=== PATIENT | male | born 1985 | race Hispanic/Latino ===

== ENCOUNTER 2016-06-27 00:09 | Emergency (ER) | payer OTHER ==
[2016-06-27 01:31] VITALS: RESP 16; TEMP 98.2; O2SAT 96
[2016-06-27 02:08] LABS: BASO % 0.7 % (0.0-2.0); EOS # 0.2 K/uL (0.0-0.7); EOS % 4.1 % (0.0-4.0); HEMATOCRIT 41.1 % (35.0-51.0); LYMPH # 1.4 K/uL (1.0-4.3); LYMPH % 23.7 % (20.0-40.0); MEAN CELL VOLUME 90.4 fl (80.0-94.0); MEAN CORPUSCULAR HEMOGLOBIN 30.4 pg (27.0-31.0); MEAN CORPUSCULAR HGB CONC 33.6 g/dL (33.0-37.0); MONO # 0.7 K/uL (0.0-0.8); MONO % 11.9 % (0.0-10.0); NEUT # 3.5 K/uL (1.8-7.0); NEUT % 59.6 % (50.0-75.0); RED CELL DISTRIBUTION WIDTH 13.3 % (11.5-14.5); WHITE BLOOD COUNT 5.8 K/uL (4.8-10.8)
[2016-06-27 02:22] LABS: ALB/GLOB RATIO 1.7 (1.0-2.1); ALCOHOL SERUM 176 mg/dl (0-10); ALKALINE PHOSPHATASE 42 U/L (38-126); ALT/SGPT 28 U/L (21-72); AST/SGOT 26 U/L (17-59); BILIRUBIN,TOTAL 0.8 mg/dl (0.2-1.3); BLOOD UREA NITROGEN 8 mg/dl (9-20); CARBON DIOXIDE 20 mmol/L (22-30); CHLORIDE 107 mmol/L (98-107); GFR AFRICAN-AMERICAN > 60; GLUCOSE,RANDOM 102 mg/dL (75-110); POTASSIUM 3.7 MMOL/L (3.6-5.0); SODIUM 142 mmol/l (132-148); TOTAL PROTEIN 7.3 G/DL (6.3-8.2)
--- NOTE | 2016-06-27 04:44 | ED PDOC ---
HPI: Psych/Substance Abuse Time Seen by Provider: 06/27/16 00:15 Chief Complaint (Nursing): Alcohol Ingestion Chief Complaint (Provider): Alcohol Ingestion History Per: EMS History/Exam Limitations: intoxication Onset/Duration Of Symptoms: Hrs Current Symptoms Are (Timing): Still Present Associated Symptoms: Agitation Additional Complaint(s): Keon Romero is a 30 year old male with no past medical history who presents to the ED accompanied by ems for evaluation of alcohol intoxication. Patient is non cooperative and agitated. denies any associated symptoms. ROS is limited due to intoxication. Past Medical History Reviewed: Historical Data, Nursing Documentation, Vital Signs Vital Signs: Last Vital Signs Temp 98.2 F 06/27/16 01:27 Pulse 86 06/27/16 01:27 Resp 16 06/27/16 01:27 BP 124/68 06/27/16 01:27 Pulse Ox 96 06/27/16 01:27 - Medical History PMH: No Chronic Diseases - Surgical History Surgical History: No Surg Hx - Family History Family History: States: Unknown Family Hx - Social History Alcohol: Social - Home Medications Home Medications: Ambulatory Orders Medication Instructions Recorded Unobtainable 06/27/16 - Allergies Allergies/Adverse Reactions: Allergies Allergy/AdvReac Type Severity Reaction Status Date / Time Unobtainable Allergy Verified 06/27/16 00:18 Review of Systems ROS Statement: Except As Marked, All Systems Reviewed And Found Negative Neurological: Positive for: Change in Speech (Slurred speech) Physical Exam - Reviewed Nursing Documentation Reviewed: Yes Vital Signs Reviewed: Yes - Physical Exam Appears: Positive for: Well, Non-toxic, No Acute Distress Head Exam: Positive for: ATRAUMATIC, NORMAL INSPECTION, NORMOCEPHALIC Skin: Positive for: Normal Color, Warm, Dry Eye Exam: Positive for: Normal appearance, EOMI, PERRL ENT: Positive for: Normal ENT Inspection Neck: Positive for: Normal, Painless ROM, Supple Cardiovascular/Chest: Positive for: Regular Rate, Rhythm. Negative for: Murmur , Tachycardia Respiratory: Positive for: Normal Breath Sounds Gastrointestinal/Abdominal: Positive for: Normal Exam, Soft. Negative for: Tenderness Male Genital Exam: Positive for: normal genitalia Back: Positive for: Normal Inspection Rectal: Positive for: Deferred Extremity: Positive for: Normal ROM Lymphatic: Positive for: Deferred Neurologic/Psych: Positive for: Alert, Oriented - Laboratory Results Result Diagrams: 06/27/16 01:30 06/27/16 01:30 - ECG O2 Sat by Pulse Oximetry: 96 (RA) Pulse Ox Interpretation: Normal Medical Decision Making Medical Decision Makin:22 Initial Impression: 30 year old intoxicated male On arrivak pt extremely agitated and uncooperative necessitating need for 4 point restraints. IM Haldol and Ativan administered for pt comfort. Initial Plan: * Alcohol serum * CM * Drug screen Urine * CBC * Lorazepam 2mg * Haloperidol Lactate 5mg * 1:1 Observation * Accucheck * Admit routine * Restraint ordered * Re-Eval 0618: Patient is awake and alert x3 with steady gait and clear speech Patient is stable for discharge. Diagnosis: alcohol intoxication. Condition has improved. Scribe~Attestation: Documented by Greg Nicole acting as a~scribe~for Anshul Sandra MD. ~ Provider~Scribe~Attestation: All medical record entries made by the~Scribe~were at my direction and personally dictated by me. I have reviewed the chart and agree that the record accurately reflects my personal performance of the history, physical exam, medical decision making, and the department course for this patient. I have also personally directed, reviewed, and agree with the discharge instructions and disposition. ED OBSERVATION Date of observation admission: 06/27/16 - Observation admission statement Patient is being placed in observation because:: Pending evaluation of alcohol intoxication. - Progress Note Progress Note: 06/27/16 0100: Vitals are clear and stable 0200: Vitals are clear and stable 0300: Vitals are clear and stable 0400: Vitals are clear and stable 0500: Vitals are clear and stable 0818: Patient is awake and alert x3 with steady gait and clear speech Patient is stable for discharge. Diagnosis: alcohol intoxication. Condition has improved. Disposition - Clinical Impression Clinical Impression: Alcohol abuse with intoxication - Disposition Disposition: Routine/Home Disposition Time: 06:30 Condition: STABLE Instructions: Alcohol Intoxication (ED)
[2016-06-27 06:30] VITALS: BP 119/63; PULSE 70
== END 2016-06-27 06:38 | disposition home or self-care (01) ==
LOC: H.ER 00:09
DX: F10.129 Alcohol abuse with intoxication, unspecified (principal); R45.1 Restlessness and agitation